=== PATIENT | female | born 1950 | race Caucasian/White ===

== ENCOUNTER 2017-12-19 13:24 | Emergency (ER) | payer OTHER, BC ==
[2017-12-19 13:29] VITALS: BMI 43.2
--- NOTE | 2017-12-19 13:59 | CT ---
HISTORY: Head injury, laceration Study: CT brain without contrast Comparison: None Technique: Multiple axial images of the brain were obtained from the skull base to the vertex without administra tion of IV contrast. Coronal and sagittal reformats were performed. Dose reduction procedures were us ed with mA/kv adjusted for body size. Findings: The ventricles are normal in size shape and position. There is a subtle area of increased attenuation involving the right posterior parietal cortex and immediate subcortical white matter best visualized on series 4 axial image 21 and series 6 sagittal image 24. This likely represents a small contusion with some minimal petechial hemorrhage present. There is no evidence for recent or remote CVA, mass l esion, or extra-axial fluid collection. The calvarium is intact. The visualized sinuses are clear. IMPRESSION: Subtle area of increased attenuation involving a small area of the right posterior parietal cortex a nd subcortical white matter most likely representing a mild cortical contusion with minimal petechial hemorrhage. Reported By:
--- NOTE | 2017-12-19 14:01 | CT ---
HISTORY: Trauma, neck pain Study: CT cervical spine without contrast Comparison: None Technique: Multiple axial images of the cervical spine were obtained from the skull base to the thora cic inlet without administration of IV contrast. Sagittal and coronal reformats were performed and r eviewed. Findings: Alignment of the cervical spine is maintained. No evidence for acute cortical disruption or subluxat ion can be seen. The central canal remains free of compromise from bony fragments or significant sof t tissue encroachment. The posterior elements appear unremarkable. The prevertebral soft tissues ar e normal in their appearance. In addition, the surrounding paraspinous soft tissues are unremarkable . Multilevel degenerative disc disease most significant at the C4-5, C5-6, and C6-7 levels. IMPRESSION: 1. No evidence for traumatic injury of the cervical spine. Reported By:
--- NOTE | 2017-12-19 14:04 | DR.LACERAT ---
HPI - Time Seen Time seen: 14:01 - Primary Care Physician Primary Care Physician: SURI KING - Complaints Chief Complaint Doctors Comments: Patient states she was mopping her kitchen and went to step down her ""step down area" and stepped on the vacuum sewer cleaner and it roller and she fell and hit the end table with the back of her head. She denies LOC, blurred vision, nausea or vomiting. States she is having neck pain and the back of her head hurts. states she is unsure of her last tetanus. States her pain level is 0 of 10 presently. Chief Complaint:: PT. STATES SHE FELL, HITTING THE BACK OF HER HEAD ONTO A TABLE. 2 LACERATIONS NOTED TO RIGHT BACK SIDE OF HEAD. NO LOC. PT. ALSO C/O NECK PAIN. - Reviewed Nurses Notes Reviewed: Yes - Source History Provided: Patient - Mode of Arrival Mode of Arrival: Wheelchair - Timing Onset of Chief Complaint: 12/19/17 - Context Mechanism: Blunt Trauma, Fall, Wood Circumstance: Work-related Tetanus Vaccination: Unknown - Severity Pain Severity: Mild Pain Score: 0 Bleeding:: Controlled - Associated Signs and Symptoms Associated Signs and Symptoms: None PMH - PMH Past Medical History: Yes Past Medical History: Diabetes, GERD, Hypertension, Hypothyroidism Past Medical History Comment: MITRAL VALVE PROLAPSE Past Surgical History: Yes Surgical History: , Cholecystectomy, PATCHER Surgery, Hysterectomy Past Surgical History Comment: CATARACTS, TUBAL LIGATION - Family History History of Family Medical Conditions: No - Social History Does patient currently use any type of tobacco product: No Have you used tobacco products in the last 12 months: No Type of Tobacco Use: None Does any household member use tobacco: No Alcohol Use: None Do you use any recreational Drugs:: No Lives With: Spouse Lives Where: Home - infectious screening In the last 2 months have you had wt loss of >10#?: NO Have you had fever, night sweats or hemotysis?: No Have you traveled outside the country in the last 6 months?: No Isolation: Standard ROS - Review of Systems Constitutional: No Symptoms Reported. negative: See HPI, Chills, Diaphoresis, Fever, Malaise, Weakness, Irritable, Fatigue, Loss of Appetite, Other Eyes: No Symptoms Reported ENTM: No Symptoms Reported Respiratoy: No Symptoms Reported. negative: See HPI, Productive Cough, Non- Productive Cough, Moist Cough, Dry Cough, Hacking Cough, Barking Cough, Brassy Cough, Orthopnea, Short of Breath, Stridor, Wheezing, Hemoptysis, Other Cardiovascular: No Symptoms Reported Gastrointestinal/Abdominal: No Symptoms Reported. negative: See HPI, Abdominal Pain, Constipation, Diarrhea, Nausea, Vomiting, Food Intolerance, Other Genitourinary: No Symptoms Reported Neurological: No Symptoms Reported, Headache. negative: See HPI, Anxiety, Depressed, Emotional Problems, Numbness, Paresthesia, Pre-existing Deficit, Seizure, Tingling, Tremors, Weakness, Dizziness, Problems Walking, Speech Problem, Other Musculoskeletal: No Symptoms Reported, Neck Pain Integumentary: No Symptoms Reported, Wound (two laceration back of head) Hematologic/Lymphatic: No Symptoms Reported. negative: See HPI, Anemia, Blood Clots, Easy Bleeding, Easy Bruising, Swollen Glands, Lymphadenopathy, Other Endocrine: No Symptoms Reported Psychiatric: No Symptoms Reported PE - Vital Signs Vitals: Temperature 98.6 F Pulse Rate 102 Respiratory Rate 18 Blood Pressure 186/84 O2 Sat by Pulse Oximetry 96 - General Limitations: No Limitations General Appearance: Alert, In Distress (mild), Obese - Head Head Exam: Normal Inspection, Normocephalic. negative: Atraumatic (laceration x2 at 3 cm occipital scalp; no active bleeding) - Eyes Eye exam: Normal Appearance, PERRL, EOMI. negative: Scleral Icterus, Conjunctival Injection, Nystagmus, Miosis, Mydrasis, Periorbital Swelling, Periorbital Tenderness, Other - ENT ENT Exam: Normal Exam, Normal Oropharynx, Normal External Ear Exam, Mucous Membranes Moist, TM's Normal Bilaterally - Neck Neck Exam: Normal Inspection, Full ROM, Trachea Midline, Tenderness (tender back of neck; no bruised or erythema) - Chest Chest Inspection: Normal Inspection, Symmetric Chest Wall Rise - Respiratory Respiratory Exam: Normal Lung Sounds Bilat Respiratory Exam: Bilateral Clear to Auscultation - Cardiovascular Cardiovascular Exam: Regular Rate, Normal Rhythm, Normal Heart Sounds - Abdominal Exam Abdominal Exam: Normal Inspection, Normal Bowel Sounds, Soft. negative: Distention, Tenderness, Guarding, Rebound, Rigidity, Dimnished Bowel Sounds, Hyperactive Bowel Sounds, Hypoactive Bowel Sounds, Organomegaly, Trauma, Incision, Ascites, Mass, Bruit, Pulsatile Mass, Hernia, Other Abdominal Tenderness: negative: RUQ, RLQ, LUQ, LLQ, Epigastrium, Suprapubic, Diffuse, Mild, Moderate, Severe, Other - Extremities Extremities Exam: Normal Inspection, Full ROM, Normal Capillary Refill. negative: Tenderness, Edema, Joint Swelling, Calf Tenderness, Other - Back Back Exam: Normal Inspection, Full ROM - Neurologic Neurological Exam: Alert, Oriented X3, CN II-XII Intact, Reflexes Normal. negative: Normal Gait - Psychiatric Psychiatric Exam: Normal Affect, Normal Mood - Skin Skin Exam: Warm, Dry, Intact, Normal Color Type of Lesion: Laceration (occipital laceration) Distribution: negative: Generalized, Involves Palms/Soles, Head, Face, Neck, Thorax, Chest, Back, Abdomen, Genitals, LUE, LLE, RUE, RLE, Other Description: negative: Size, Tenderness, Erythematous, Swelling, Macular, Papular, Vesicular, Blisters, Cofluent, Bullous, Petechial, Purpuric, Urticarial , Crusting, Discharge, Fluctuant, Indurated, Other Course - Consultation Called: 14:32 Call Returned: 14:32 (Dr. Mckeon accepted patient in transfer to [facility]) - Education/Counseling Education/Counseling: Patient, Family Educated On: Treatment, Diagnosis, Needs for Follow Up Procedures - Laceration/Wound Repair Head Wound Length (cm): 3 Wound's Depth, Shape: Linear Wound Explored: no foreign body removed Betadine Prep?: Yes Anesthesia: 1% Lidocaine Wound Repaired With: sutures Suture Size/Type: 4:0 Number of Sutures: 7 - Diagnosis Discharge Problem: Disc disease, degenerative, cervical, Essential hypertension Closed head injury with petechial hemorrhage of right cerebrum Qualifiers: Encounter type: initial encounter Contusion of head Qualifiers: Laterality: unspecified laterality Laceration of occipital scalp Qualifiers: Encounter type: initial encounter Qualified Code(s): S01.01XA - Laceration without foreign body of scalp, initial encounter Fall Qualifiers: Encounter type: initial encounter Qualified Code(s): W19.XXXA - Unspecified fall, initial encounter - Discharge Plan Disposition: [facility] Condition: Stable - Follow ups/Referrals Follow ups/Referrals: Suri King [Primary Care Provider] - 3 days - Instructions
[2017-12-19] MEDS ORDERED: ADACEL TDaP IM ONE ×2 (14:40→14:42)
[2017-12-19] MEDS ORDERED: ROCEPHIN VIAL 1 GM ONE (15:25)
[2017-12-19] MEDS ORDERED: MORPHINE SULFATE INJ 2 MG INJ IVP ONE (15:46)
[2017-12-19] MEDS ORDERED: ROCEPHIN VIAL 1 GM IM ONE (15:47)
[2017-12-19] MEDS ORDERED: MORPHINE SULFATE INJ 2 MG INJ ONE (15:49)
[2017-12-19 15:54] VITALS: BP 165/71
== END 2017-12-19 16:07 | disposition short-term general hospital (02) ==
LOC: ER 13:38
PROC: 0WQ0XZZ Repair Head, External Approach (ICD-10-PCS; principal; 2017-12-19)
DX: S01.91XA Laceration without foreign body of unspecified part of head, initial encounter (principal); S09.8XXA Other specified injuries of head, initial encounter; S00.93XA Contusion of unspecified part of head, initial encounter; M50.30 Other cervical disc degeneration, unspecified cervical region; I10 Essential (primary) hypertension; W19.XXXA Unspecified fall, initial encounter; Y92.9 Unspecified place or not applicable
CPT/HCPCS: 70450; 72125; 90471; 96365; 96372; 96374; 99283; 99285; A4222; J0696; J2270